=== PATIENT | male | born 1965 | race Two or more races ===

== ENCOUNTER 2022-12-22 11:51 | Inpatient (IN) | payer MEDICAID ==
[~2022-12-22] VITALS: Ht 167.6 cm; Wt 82.7 kg
[2022-12-22] MEDS ORDERED: NITROGLYCERIN 0.4 MG SL TAB SL ONE ×2 (12:00→13:30)
[2022-12-22] MEDS ORDERED: FUROSEMIDE 40 MG/4 ML VIAL IV ONE (12:00)
[2022-12-22] MEDS ORDERED: methylPREDNISolone SOD SUCC 125 MG/2 ML VL IV ONE (12:00)
[2022-12-22 13:29] LABS: Basophils # (auto) 0.1 10 ^3/uL (0-0.2); Basophils % (auto) 1.2 % (0.0-2.0); Red Cell Distribution Width 14.9 % (11.8-14.3); White Blood Cell 6.5 10^3/uL (4.4-10.8)
[2022-12-22] MEDS ORDERED: METOPROLOL TARTRATE 1MG/1ML-5ML VIAL IV ONE ×2 (13:30→14:30)
[2022-12-22 13:31] LABS: Eosinophils # (auto) 0 10 ^3/uL (0-0.8); Eosinophils % (auto) 0.8 % (0.0-7.0); Hematocrit 44.7 % (41.0-53.0); Hemoglobin 14.4 g/dL (13.5-17.5); Lymphocytes # (auto) 1.5 10 ^3/uL (0.4-5.4); Mean Corpuscular Hgb Conc. 32.1 g/dL (32.0-36.0); Mean Corpuscular Volume 77.7 fL (80.0-100.0); Monocytes # (auto) 0.7 10 ^3/uL (0-1.3); Monocytes % (auto) 11.2 % (0.0-12.0); Neutrophils # (auto) 4.2 10 ^3/uL (1.6-8.6); Neutrophils % (auto) 63.8 % (37.0-80.0); Red Blood Cells 5.76 10^6/uL (4.5-5.90)
[2022-12-22] MEDS ORDERED: ALBUTEROL MEDNEB 2.5 mg/3ml NEB ONE ×3 (13:40→22:10)
[2022-12-22] MEDS ORDERED: IPRATROPIUM BROM 0.5 MG/2.5ML INH SOL ONE (13:40)
[2022-12-22 13:45] LABS: Albumin 3.5 g/dL (3.4-5.0); Calcium 9.1 mg/dL (8.5-10.1); Magnesium 2.4 mg/dL (1.6-2.6); Potassium 4.7 mmol/L (3.5-5.1)
[2022-12-22] MEDS ORDERED: ALBUTEROL SULF 2.5 MG/0.5ML(0.5%) NEB SOLN NEB ONE ×2 (13:45)
[2022-12-22] MEDS ORDERED: IPRATROPIUM BROM 0.5 MG/2.5ML INH SOL NEB ONE (13:45)
[2022-12-22 13:47] LABS: Lactic Acid w/Reflex 2.1 mmol/L (0.4-2.0)
[2022-12-22 13:48] LABS: BUN/Creatinine Ratio 17.1; Bilirubin, Total 0.8 mg/dL (0.2-1.0); Total Protein 7.8 g/dL (6.4-8.2)
[2022-12-22] MEDS ORDERED: HEPARIN SODIUM (PORCINE) 5000 UNITS/ML 1ML VIAL IV ONE (14:30)
[2022-12-22] MEDS ORDERED: HEPARIN DRIP/D5W 100UNITS/ML 250 ML IV SCH ×3 (14:30→23:30)
[2022-12-22] MEDS ORDERED: MORPHINE SULFATE INJ 2 MG/ml SYRG IV PRN ×2 (14:45→19:15)
[2022-12-22] MEDS ORDERED: NITROGLYCERIN 0.4 MG SL TAB SL PRN ×2 (14:45→19:15)
[2022-12-22] MEDS ORDERED: PANTOPRAZOLE 40 MG/10 ML VIAL INJ IV ONE (14:45)
[2022-12-22] MEDS ORDERED: LISI-716 PO (14:47)
[2022-12-22] MEDS ORDERED: ASPI81CH59 PO (14:47)
[2022-12-22] MEDS ORDERED: BUDE1AER4 INH (14:47)
[2022-12-22] MEDS ORDERED: TIOTCAP INH (14:47)
[2022-12-22] MEDS ORDERED: ISOS1TAB28 PO (14:47)
[2022-12-22] MEDS ORDERED: FURO80TA3 PO (14:47)
[2022-12-22] MEDS ORDERED: CARV12.544 PO (14:47)
[2022-12-22] MEDS ORDERED: SPIR25TA8 PO (14:47)
[2022-12-22] MEDS ORDERED: LISI20TA28 PO (14:47)
[2022-12-22] MEDS ORDERED: CARV25TA55 PO (14:47)
[2022-12-22] MEDS ORDERED: ALBU108A5 INH (14:47)
[2022-12-22] MEDS ORDERED: HYDR-4298 PO (14:47)
[2022-12-22] MEDS ORDERED: POTA-180 (14:47)
[2022-12-22] MEDS ORDERED: FURO40TA4 PO (14:47)
[2022-12-22] MEDS ORDERED: ISOS120T4 PO (14:47)
[2022-12-22] MEDS ORDERED: cefTRIAXone 1GM/50ML D5W 50 ML IV ONE (15:15)
[2022-12-22] MEDS ORDERED: AZITHROMYCIN 500MG/ 250ML 250 ML IV ONE (15:15)
[2022-12-22 15:38] LABS: Cholesterol 170 mg/dL (< 200); Triglycerides 49 mg/dL (< 150)
[2022-12-22 15:41] LABS: HDL Cholesterol 58 mg/dL (40-59); LDL Cholesterol 107 mg/dL (< 100)
[2022-12-22] MEDS ORDERED: hydrALAZINE HCL 20 MG/ML VL IV PRN (16:45)
[2022-12-22] MEDS: IPRATROPIUM BROM 0.5 MG/2.5ML INH SOL NEB SCH ×2 (20:29→22:00)
[2022-12-22] MEDS: ALBUTEROL SULF 2.5 MG/0.5ML(0.5%) NEB SOLN NEB SCH ×2 (20:29→22:00)
[2022-12-22] MEDS ORDERED: IOHEXOL 350 MG/ML 100ML IJ ONE (21:03)
[2022-12-22] MEDS: methylPREDNISolone SOD SUCC 125 MG/2 ML VL IV SCH (22:40)
[2022-12-22] MEDS: CARVEDILOL 12.5 MG TAB PO SCH (22:41)
[2022-12-22] MEDS: hydrALAZINE HCL 25 MG TAB PO SCH (22:41)
[2022-12-22 23:06] LABS: INR 1.12 (0.9-1.15); Partial Thromboplastin Time 28.1 sec (24.6-33.4)
[2022-12-23] MEDS ORDERED: HEPARIN SODIUM (PORCINE) 5000 UNITS/ML 1ML VIAL IV ONE (00:30)
[2022-12-23] MEDS ORDERED: ALBUTEROL MEDNEB 2.5 mg/3ml NEB ONE ×4 (02:15→09:46)
[2022-12-23] MEDS: ALBUTEROL SULF 2.5 MG/0.5ML(0.5%) NEB SOLN NEB SCH ×3 (03:12→09:50)
[2022-12-23] MEDS: IPRATROPIUM BROM 0.5 MG/2.5ML INH SOL NEB SCH ×3 (03:14→09:50)
[2022-12-23 06:27] LABS: INR 1.13 (0.9-1.15); Partial Thromboplastin Time 42.4 sec (24.6-33.4)
[2022-12-23] MEDS: hydrALAZINE HCL 25 MG TAB PO SCH (06:28)
[2022-12-23 06:29] LABS: Basophils # (auto) 0 10 ^3/uL (0-0.2); Eosinophils # (auto) 0 10 ^3/uL (0-0.8); Hemoglobin 13.5 g/dL (13.5-17.5); White Blood Cell 7.5 10^3/uL (4.4-10.8)
[2022-12-23 06:31] LABS: Basophils % (auto) 0.4 % (0.0-2.0); Eosinophils % (auto) 0.1 % (0.0-7.0); Lymphocytes % (auto) 12.8 % (10.0-50.0); Mean Corpuscular Hemoglobin 25.4 pg (28.0-32.0); Mean Corpuscular Volume 77.2 fL (80.0-100.0); Monocytes # (auto) 0.2 10 ^3/uL (0-1.3); Monocytes % (auto) 2.1 % (0.0-12.0); Neutrophils # (auto) 6.3 10 ^3/uL (1.6-8.6); Neutrophils % (auto) 84.6 % (37.0-80.0); Nucleated Red Blood Cells % 0.1 %; Red Blood Cells 5.31 10^6/uL (4.5-5.90); Red Cell Distribution Width 15.2 % (11.8-14.3)
[2022-12-23 06:44] LABS: Albumin 3.2 g/dL (3.4-5.0); Bilirubin, Total 0.8 mg/dL (0.2-1.0); Calcium 8.6 mg/dL (8.5-10.1); Total Protein 7.9 g/dL (6.4-8.2)
[2022-12-23] MEDS ORDERED: cefTRIAXone 1GM/50ML D5W 50 ML IV SCH (09:00)
[2022-12-23] MEDS ORDERED: PANTOPRAZOLE 40 MG/10 ML VIAL INJ IV SCH (10:00)
[2022-12-23] MEDS ORDERED: FUROSEMIDE 20 MG/2 ML VIAL IV SCH (10:00)
[2022-12-23] MEDS ORDERED: AZITHROMYCIN 500MG/ 250ML 250 ML IV SCH (10:00)
[2022-12-23] MEDS: ISOSORBIDE MONONITRATE ER 60 MG TAB PO SCH (10:23)
[2022-12-23] MEDS: CARVEDILOL 12.5 MG TAB PO SCH ×2 (10:24→22:12)
[2022-12-23] MEDS: SPIRONOLACTONE 25 MG TAB PO SCH (10:24)
[2022-12-23] MEDS: ASPirin 81 mg TAB PO SCH (10:24)
[2022-12-23] MEDS: methylPREDNISolone SOD SUCC 125 MG/2 ML VL IV SCH (10:26)
[2022-12-23] MEDS: LISINOPRIL 20 MG TAB PO SCH (10:38)
[2022-12-23 13:49] LABS: Hepatitis C Antibody Negative (Negative)
[2022-12-23 13:50] LABS: Hepatitis A Ab IgM Negative; Hepatitis B Core IgM Negative
[2022-12-23 15:57] LABS: INR 1.14 (0.9-1.15); Partial Thromboplastin Time 26.9 sec (24.6-33.4)
[2022-12-23] MEDS ORDERED: FUROSEMIDE 40 MG/4 ML VIAL IV ONE (16:00)
[2022-12-23 17:23] LABS: INR 1.14 (0.9-1.15); Partial Thromboplastin Time 26.1 sec (24.6-33.4)
[2022-12-23 18:21] LABS: Urine Bacteria NONE SEEN /hpf (None Seen); Urine Blood Negative /uL (Negative); Urine Specific Gravity 1.014 (1.001-1.035); Urine WBC 1 /hpf (0 - 3)
[2022-12-23] MEDS: ENOXAPARIN SOD 40 MG/0.4 ML SYRINGE SC SCH (22:12)
[2022-12-23 22:45] VITALS: BP 148/98
[2022-12-24 05:00] VITALS: BP 145/96
[2022-12-24] MEDS ORDERED: ALBUTEROL MEDNEB 2.5 mg/3ml NEB ONE (05:49)
[2022-12-24] MEDS ORDERED: IPRATROPIUM BROM 0.5 MG/2.5ML INH SOL ONE (05:49)
[2022-12-24] MEDS: FUROSEMIDE 20 MG/2 ML VIAL IV SCH ×2 (06:48→20:37)
[2022-12-24] MEDS: ALBUTEROL SULF 2.5 MG/0.5ML(0.5%) NEB SOLN NEB PRN (07:51)
[2022-12-24] MEDS: SPIRONOLACTONE 25 MG TAB PO SCH (08:42)
[2022-12-24] MEDS: ASPirin 81 mg TAB PO SCH (08:42)
[2022-12-24] MEDS: CARVEDILOL 12.5 MG TAB PO SCH ×2 (08:43→23:04)
[2022-12-24] MEDS: ISOSORBIDE MONONITRATE ER 60 MG TAB PO SCH (08:44)
[2022-12-24] MEDS: LISINOPRIL 20 MG TAB PO SCH (08:46)
[2022-12-24 09:00] VITALS: BP 188/123
[2022-12-24 10:41] LABS: Basophils # (auto) 0 10 ^3/uL (0-0.2); Basophils % (auto) 0.1 % (0.0-2.0); Eosinophils # (auto) 0 10 ^3/uL (0-0.8); Lymphocytes # (auto) 0.9 10 ^3/uL (0.4-5.4); Monocytes # (auto) 1.2 10 ^3/uL (0-1.3)
[2022-12-24 10:43] LABS: Hematocrit 40.8 % (41.0-53.0); Hemoglobin 13.2 g/dL (13.5-17.5); Lymphocytes % (auto) 7.4 % (10.0-50.0); Mean Corpuscular Hemoglobin 24.6 pg (28.0-32.0); Mean Corpuscular Hgb Conc. 32.2 g/dL (32.0-36.0); Mean Corpuscular Volume 76.4 fL (80.0-100.0); Monocytes % (auto) 9.4 % (0.0-12.0); Neutrophils # (auto) 10.6 10 ^3/uL (1.6-8.6); Neutrophils % (auto) 83.1 % (37.0-80.0); Red Blood Cells 5.35 10^6/uL (4.5-5.90); Red Cell Distribution Width 14.9 % (11.8-14.3); White Blood Cell 12.7 10^3/uL (4.4-10.8)
[2022-12-24 11:12] LABS: Calcium 9.1 mg/dL (8.5-10.1)
[2022-12-24 11:15] LABS: Bilirubin, Total 0.5 mg/dL (0.2-1.0); Total Protein 7.4 g/dL (6.4-8.2)
[2022-12-24 13:00] VITALS: BP 145/103
[2022-12-24 17:00] VITALS: BP 146/101
[2022-12-24 20:59] LABS: Alcohol, Urine < 3.0 mg/dL (0-10); Amphetamine Screen, Urine NEGATIVE (NEGATIVE); Barbiturate Scree,Urine NEGATIVE (NEGATIVE); Benzodiazephine Screen, Urine NEGATIVE (NEGATIVE); Cannabinoid Screen, Urine POSITIVE (NEGATIVE); Cocaine Screen, Urine NEGATIVE (NEGATIVE); Opiate Scree,Urine NEGATIVE (NEGATIVE); Phencyclidine Screen, Urine NEGATIVE (NEGATIVE)
[2022-12-24] MEDS ORDERED: cloNIDine HCL 0.1 MG TAB PO PRN (21:00)
[2022-12-24 22:00] VITALS: BP 146/99
[2022-12-24] MEDS: ENOXAPARIN SOD 40 MG/0.4 ML SYRINGE SC SCH (23:04)
[2022-12-25 05:00] VITALS: BP 139/96
[2022-12-25 05:38] LABS: Basophils # (auto) 0.1 10 ^3/uL (0-0.2); Eosinophils # (auto) 0.1 10 ^3/uL (0-0.8); Hemoglobin 13.9 g/dL (13.5-17.5); Lymphocytes # (auto) 2.4 10 ^3/uL (0.4-5.4); Monocytes # (auto) 1.1 10 ^3/uL (0-1.3); Neutrophils % (auto) 62.7 % (37.0-80.0)
[2022-12-25 05:40] LABS: Basophils % (auto) 0.5 % (0.0-2.0); Eosinophils % (auto) 0.8 % (0.0-7.0); Hematocrit 42.2 % (41.0-53.0); Lymphocytes % (auto) 24.6 % (10.0-50.0); Mean Corpuscular Hgb Conc. 32.9 g/dL (32.0-36.0); Mean Corpuscular Volume 75.9 fL (80.0-100.0); Monocytes % (auto) 11.4 % (0.0-12.0); Neutrophils # (auto) 6.2 10 ^3/uL (1.6-8.6); Nucleated Red Blood Cells % 0.2 %; Red Blood Cells 5.55 10^6/uL (4.5-5.90); Red Cell Distribution Width 15.2 % (11.8-14.3); White Blood Cell 9.9 10^3/uL (4.4-10.8)
[2022-12-25 05:58] LABS: Calcium 8.8 mg/dL (8.5-10.1); Potassium 3.6 mmol/L (3.5-5.1)
[2022-12-25 06:01] LABS: BUN/Creatinine Ratio 26.5
[2022-12-25 06:04] LABS: Bilirubin, Total 0.5 mg/dL (0.2-1.0); Total Protein 7.8 g/dL (6.4-8.2)
[2022-12-25] MEDS: FUROSEMIDE 20 MG/2 ML VIAL IV SCH (06:28)
[2022-12-25] MEDS: ASPirin 81 mg TAB PO SCH (08:53)
[2022-12-25] MEDS: SPIRONOLACTONE 25 MG TAB PO SCH (08:53)
[2022-12-25] MEDS: ISOSORBIDE MONONITRATE ER 60 MG TAB PO SCH (08:54)
[2022-12-25] MEDS: CARVEDILOL 12.5 MG TAB PO SCH (08:54)
[2022-12-25 09:00] VITALS: BP 145/95
[2022-12-25 09:31] VITALS: BP 145/95
[2022-12-25 12:54] VITALS: BP 132/98
[2022-12-25] MEDS ORDERED: SACU1TAB PO (15:55)
[2022-12-25 16:34] VITALS: BP 132/98
[2022-12-25 17:06] VITALS: BP 141/91
[2022-12-25] MEDS ORDERED: ALBUTEROL MEDNEB 2.5 mg/3ml NEB ONE (17:08)
[2022-12-25] MEDS: ALBUTEROL SULF 2.5 MG/0.5ML(0.5%) NEB SOLN NEB PRN (17:14)
[2022-12-25] MEDS ORDERED: SACUBITRIL-VALSARTAN 24mg/26mg TAB PO SCH (22:00)
== END 2022-12-25 19:55 | disposition home or self-care (01) | DRG 133 ==
LOC: EDBD 11:51 → ER 11:51 → TELE 14:44 → TELE-WESTW 12-23 21:45
PROVIDERS: ADMIT Nurse Practitioner Family; ATTEND Student in an Organized Health Care Education/Training Program
DX: J96.21 Acute and chronic respiratory failure with hypoxia (principal); I21.A1 Myocardial infarction type 2; I50.43 Acute on chronic combined systolic (congestive) and diastolic (congestive) heart failure; N17.9 Acute kidney failure, unspecified; J44.1 Chronic obstructive pulmonary disease with (acute) exacerbation; I11.0 Hypertensive heart disease with heart failure; Z20.822 Contact with and (suspected) exposure to COVID-19; K75.81 Nonalcoholic steatohepatitis (NASH); I16.0 Hypertensive urgency; E11.9 Type 2 diabetes mellitus without complications; E66.9 Obesity, unspecified; E78.5 Hyperlipidemia, unspecified; F17.210 Nicotine dependence, cigarettes, uncomplicated; Z82.49 Family history of ischemic heart disease and other diseases of the circulatory system; Z68.29 Body mass index [BMI] 29.0-29.9, adult; K80.20 Calculus of gallbladder without cholecystitis without obstruction
CPT/HCPCS: 36415; 36600; 71045; 71260; 74177; 76705; 80053; 80061; 80074; 80307; 81001; 82805; 82977; 83036; 83605; 83735; 83880; 84443; 84484; 85025; 85379; 85610; 85730; 87040; 87426; 87804; 93005; 93306; 94640; 96374; 96375; 96376; 99291; C9113; G0378; J0696

== ENCOUNTER 2023-08-09 14:07 | Emergency (ER) | payer MEDICAID ==
[~2023-08-09] VITALS: Ht 177.8 cm; Wt 76.7 kg
[~2023-08-09 14:07] MED LIST: ALBU108A5 INH; ASPI81CH59 PO; BUDE1AER4 INH; CARV12.544 PO; CARV25TA55 PO; FURO40TA4 PO; ISOS1TAB28 PO; POTA-180; SACU1TAB PO; SPIR25TA8 PO; TIOTCAP INH
[2023-08-09 14:52] VITALS: BP 169/94; PULSE 68; RESP 18; O2SAT 94
[2023-08-09] MEDS ORDERED: HYDROcodone-ACET 5/325MG TAB PO ONE (15:00)
[2023-08-09] MEDS ORDERED: LIDOCAINE 1% HCL (LOCAL ANESTH.) INJ 20ML MDV IJ ONE (15:30)
[2023-08-09] MEDS ORDERED: ACET-1080 PO (16:20)
[2023-08-09] MEDS ORDERED: CEPH500C PO (16:20)
== END 2023-08-09 16:30 | disposition home or self-care (01) ==
LOC: ER 14:07
DX: M25.462 Effusion, left knee (principal); G89.29 Other chronic pain; I11.0 Hypertensive heart disease with heart failure; I50.9 Heart failure, unspecified; J44.9 Chronic obstructive pulmonary disease, unspecified; F12.10 Cannabis abuse, uncomplicated; Z87.891 Personal history of nicotine dependence
CPT/HCPCS: 20610; 73562; 99283; J2001